=== PATIENT | female | born 1950 | race Hispanic/Latino ===

== ENCOUNTER 2024-06-23 04:29 | Inpatient (IN) | payer OTHER ==
[2024-06-23] MEDS ORDERED: HYDROCODONE/APAP 5/325 MG TAB ONE (04:45)
[2024-06-23] MEDS ORDERED: ONDANSETRON 4 MG/2 ML VIAL ONE (05:04)
[2024-06-23] MEDS ORDERED: MORPHINE 4 MG/ML SYR ONE ×2 (05:05→09:14)
[2024-06-23] MEDS ORDERED: MORPHINE 2 MG/ML SYR ONE (05:06)
[2024-06-23] MEDS ORDERED: DIAZEPAM 10 MG/2 ML INJ SYRINGE ONE (05:22)
[2024-06-23] MEDS ORDERED: NA CHLORIDE 0.9% 1,000 ML ONE (05:24)
[2024-06-23 06:18] LABS: Sqamous Epithelial None Seen /HPF (None Seen); Urine Bacteria None Seen /HPF (<20); Urine Bilirubin NEGATIVE (Negative); Urine Blood Negative (Negative); Urine Clarity Clear (Clear); Urine Color Light-Yellow (Yellow); Urine Culture Reflex Order NOT NEEDED; Urine Glucose 4+ (Over) (Negative); Urine Ketones 1+ (Negative); Urine Micro Reflex YN NO BILL MICROSCOPIC; Urine Nitrite NEGATIVE (Negative); Urine Protein TRACE (Negative); Urine RBC <5 /HPF (None Seen); Urine Urobilinogen Normal (Normal); Urine WBC <5 /HPF (<5); Urine pH 7.5 (5.0-7.0)
--- NOTE | 2024-06-23 06:18 | ER ---
Nurse's Notes [facility] Name: Kim Kumari Age: 73 yrs Sex: Female : 1950 Arrival Date: 06/23/2024 Time: 04:29 Bed 6 Private MD: Diagnosis: Left intertrochanteric hip fracture, Acute fall at home Presentation: 06/23 04:37 Chief complaint: EMS states: Pt tripped over her dog and fell on her left hip. Pt is kd3 holding her knees up for comfort and did not allow EMS to assess for shortening or deformity. PT received 50 mcg of fentanyl for pain and 4 of Zofran for nausea. 20 G in the left wrist. VSS. Coronavirus screen: Vaccine status: Patient reports being unvaccinated. Ebola Screen: No symptoms or risks identified at this time. Initial Sepsis Screen: Does the patient meet any 2 criteria? No. Patient's initial sepsis screen is negative. Does the patient have a suspected source of infection? No. Patient's initial sepsis screen is negative. Risk Assessment: Do you want to hurt yourself or someone else? Patient reports no desire to harm self or others. Onset of symptoms was June 23, 2024. 04:37 Method Of Arrival: EMS: [facility] kd3 04:37 Acuity: BRANDT 3 kd3 Triage Assessment: 04:40 General: Appears uncomfortable, Behavior is calm, cooperative. Pain: Complains of pain kd3 in left hip. Neuro: Level of Consciousness is awake, alert, obeys commands, Oriented to person, place, time, situation. Cardiovascular: Patient's skin is warm and dry. Respiratory: Airway is patent Trachea midline Respiratory effort is even, unlabored, Respiratory pattern is regular, symmetrical. Historical: - Allergies: 04:40 PENICILLINS; kd3 - Immunization history:: Adult Immunizations up to date. - Infectious Disease History:: Denies. - Social history:: Smoking status: Patient denies any tobacco usage or history of. - Family history:: not pertinent. Screenin:41 [facility] ED Fall Risk Assessment (Adult) History of falling in the last 3 months, kd3 including since admission Yes- single mechanical fall (1 pt) Confusion or Disorientation No (0 pts) Intoxicated or Sedated No (0 pts) Impaired Gait No (0 pts) Mobility Assist Device Used No (0 pt) Altered Elimination No (0 pt) Score/Fall Risk Level 0 - 2 = Low Risk Oriented to surroundings. Abuse screen: Denies threats or abuse. Denies injuries from another. Nutritional screening: No deficits noted. Tuberculosis screening: No symptoms or risk factors identified. Assessment: 04:40 General: See triage . kd3 06:41 Reassessment: Patient is alert, oriented x 3, equal unlabored respirations, skin kd3 warm/dry/pink. Patient states feeling better. Patient states symptoms have improved. Pain: Complains of pain in left hip. Neuro: Level of Consciousness is awake, alert, obeys commands, Oriented to person, place, time, situation. Cardiovascular: Patient's skin is warm and dry. Respiratory: Airway is patent Trachea midline Respiratory effort is even, unlabored, Respiratory pattern is regular, symmetrical. Vital Signs: 04:37 BP 166 / 59; Pulse 73; Resp 16; Temp 97.9(O); Pulse Ox 95% on R/A; Weight 67 kg; kd3 05:55 BP 157 / 79; Pulse 83; Resp 19; Pulse Ox 96% on R/A; kd3 06:40 BP 161 / 55; Pulse 72; Resp 16; Pulse Ox 94% ; kd3 07:46 BP 140 / 53; Pulse 70; Resp 18; Pulse Ox 96% on R/A; ph 09:30 BP 157 / 68; Pulse 87; Resp 18; Pulse Ox 98% on R/A; ph 11:09 BP 157 / 85; Pulse 96; Resp 18; Temp 97.5; Pulse Ox 97% ; ph Sanders Coma Score: 05:22 Eye Response: spontaneous(4). Motor Response: obeys commands(6). Verbal Response: sp4 oriented(5). Total: 15. ED Course: 04:30 Patient arrived in ED. ty 04:37 Ansley Zaldivar RN is Primary Nurse. kd3 04:38 Harmeet Olguin MD is Attending Physician. sp4 04:40 Triage completed. kd3 04:40 Arm band placed on right wrist. kd3 04:41 Patient has correct armband on for positive identification. Provided Education on: Hip kd3 injury . 04:41 Maintain EMS IV. Dressing intact. Good blood return noted. Site clean \T\ dry. Gauge \T\ kd 3 site: 20 gauge in the left forearm . 05:09 XRAY Hip LEFT 2 view In Process Unspecified. EDMS 05:34 XRAY Chest (1 view) In Process Unspecified. EDMS 05:34 XRAY Pelvis In Process Unspecified. EDMS 05:39 EKG done, by ED staff, reviewed by Harmeet Olguin MD. al5 05:55 No provider procedures requiring assistance completed. Doll cath inserted, using kd3 sterile technique, 18 Fr., by me, balloon inflated, urine specimen collected. 06:00 Urinalysis W/Microscopic Sent. kd3 06:01 Urine collected: Doll catheter specimen, clear. kd3 06:15 Missed attempt(s): 20 gauge Bleeding controlled, band aid applied, catheter tip intact. ty 06:16 Abbe Munguia is Hospitalizing Provider. sp4 06:20 Missed attempt(s): 22 gauge Bleeding controlled, band aid applied, catheter tip intact. ty 06:24 Missed attempt(s): 22 gauge Bleeding controlled, band aid applied, catheter tip intact. ty 06:25 Missed attempt(s): 22 gauge Bleeding controlled, band aid applied, catheter tip intact. ty 06:30 Initial lab(s) drawn, by ED staff, sent to lab. ty 09:25 Angio Aorta For Dissection In Process Unspecified. EDMS Administered Medications: 04:47 Drug: HYDROcodone-acetaminophen PO 5 mg-325 mg 2 tabs PO once Route: PO; kd3 06:42 Follow up: Response: No adverse reaction; Pain is unchanged, physician notified kd3 05:10 Drug: morphine IVP or IV 6 mg IVP once over 4 mins Route: IVP; Infused Over: 4 mins; kd3 Site: left forearm; 06:41 Follow up: Response: Pain is decreased kd3 05:10 Drug: Ondansetron IVP 4 mg IVP once; over 2 minutes Route: IVP; Site: left forearm; kd3 06:41 Follow up: Response: No adverse reaction kd3 05:54 Drug: Diazepam IVP 5 mg IVP once Route: IVP; Site: left wrist; kd3 06:41 Follow up: Response: No adverse reaction; Pain is decreased kd3 06:35 Drug: NS 0.9% IV 1000 ml IV at 125 ml/hr continuous Route: IV; Rate: 125 ml/hr; Site: kd3 left forearm; 08:09 Follow up: Response: No adverse reaction; IV Status: Infusion continued upon admission ph 09:15 Drug: morphine IVP or IV 4 mg IVP once over 4 mins Route: IVP; Infused Over: 4 mins; ph Site: left wrist; Medication: 05:55 VIS not applicable for this client. kd3 Outcome: 06:17 Decision to Hospitalize by Provider. sp4 11:50 Patient left the ED. kj2 Signatures: Dispatcher [employer] EDMS Rhina Rose RN RN ph Ansley Zaldivar RN RN kd3 Harmeet Olguin MD MD sp4 Justin Davidson Amanda, RN RN al5 Loni Tejada RN RN kj2 Corrections: (The following items were deleted from the chart) 06:35 06:34 NS 0.9% IV 1000 ml IV at 125 ml/hr in right wrist kd3 kd3 09:29 09:28 morphine IVP or IV 4 mg IVP in left wrist over 4 mins ph ph
--- NOTE | 2024-06-23 06:18 | EDPHYS ---
Physician Documentation [facility] Name: Kim Kumari Age: 73 yrs Sex: Female : 1950 Arrival Date: 06/23/2024 Time: 04:29 Bed 6 Private MD: ED Physician Harmeet Olguin HPI: 06/23 04:56 This 73 yrs old Female presents to ER via EMS with complaints of Fall Injury, sp4 Hip Pain. 05:22 Very pleasant 73-year-old female presents after she fell at home over her dog sp4 developing moderate to severe left hip pain.. Historical: - Allergies: 04:40 PENICILLINS; kd3 - Immunization history:: Adult Immunizations up to date. - Infectious Disease History:: Denies. - Social history:: Smoking status: Patient denies any tobacco usage or history of. - Family history:: not pertinent. ROS: 05:22 Constitutional: Negative for fever, chills, and weight loss, positive Left hip pain sp4 05:22 All other systems are negative, Exam: 05:22 Constitutional: This is a well developed, well nourished patient who is awake, alert, sp4 in moderate distress secondary to left hip pain 05:22 Head/Face: Normocephalic, atraumatic. Eyes: Pupils equal round and reactive to light, sp4 extra-ocular motions intact. Lids and lashes normal. Conjunctiva and sclera are not injected. Cornea within normal limits. Periorbital areas with no swelling, redness, or edema. ENT: Nares patent. No nasal discharge, no septal abnormalities noted. Tympanic membranes are normal and external auditory canals are clear. Oropharynx with no redness, swelling, or masses, exudates, or evidence of obstruction, uvula midline. Mucous membranes moist. Neck: Trachea midline, no thyromegaly or masses palpated, and no cervical lymphadenopathy. Supple, full range of motion without nuchal rigidity, or vertebral point tenderness. Chest/axilla: Normal chest wall appearance and motion. Nontender with no deformity. No lesions are appreciated. Cardiovascular: Regular rate and rhythm with a normal S1 and S2. No gallops, murmurs, or rubs. Normal PMI, no JVD. No pulse deficits. Respiratory: Lungs have equal breath sounds bilaterally, clear to auscultation and percussion. No rales, rhonchi or wheezes noted. No increased work of breathing, no retractions or nasal flaring. Abdomen/GI: Soft, with normal bowel sounds. No distension or tympany. No guarding or rebound. No evidence of tenderness throughout. Back: No spinal tenderness. No costovertebral tenderness. Skin: Warm, dry with normal turgor. Normal color with no rashes, no lesions, and no evidence of cellulitis. MS/ Extremity: Pulses equal, no cyanosis. Neurovascular intact. Postive left hip severe tenderness, decreased ROM, intact peripheral pulses Neuro: Awake and alert, GCS 15, oriented to person, place, time, and situation. Cranial nerves II-XII grossly intact. Motor strength 5/5 in all extremities. Sensory grossly intact. 05:46 ECG was reviewed by the Attending Physician. KG at 0 537 normal sinus rhythm rate 70 sp4 left ventricular hypertrophy, prolonged QT Vital Signs: 04:37 BP 166 / 59; Pulse 73; Resp 16; Temp 97.9(O); Pulse Ox 95% on R/A; Weight 67 kg; kd3 05:55 BP 157 / 79; Pulse 83; Resp 19; Pulse Ox 96% on R/A; kd3 06:40 BP 161 / 55; Pulse 72; Resp 16; Pulse Ox 94% ; kd3 07:46 BP 140 / 53; Pulse 70; Resp 18; Pulse Ox 96% on R/A; ph 09:30 BP 157 / 68; Pulse 87; Resp 18; Pulse Ox 98% on R/A; ph 11:09 BP 157 / 85; Pulse 96; Resp 18; Temp 97.5; Pulse Ox 97% ; ph Wendy Coma Score: 05:22 Eye Response: spontaneous(4). Motor Response: obeys commands(6). Verbal Response: sp4 oriented(5). Total: 15. MDM: 04:56 Patient medically screened. sp4 05:46 ED course: COMPARISON: No relevant prior studies available. FINDINGS: Bones/joints: sp4 Comminuted left intertrochanteric femur fracture. No hip dislocation. Degenerative changes in the lower lumbar spine. Soft tissues: Unremarkable. IMPRESSION: Comminuted left intertrochanteric femur fracture. Electronically signed by: Liliam Andre MD 06/23/2024 05:22 AM. 06:15 Differential diagnosis: closed head injury, contusion, fracture, laceration. Data 4 reviewed: vital signs, nurses notes, EMS record, lab test result(s), EKG, radiologic studies, plain films. Consideration of Admission/Observation Escalation of care including admission/observation considered. ED course: EXAM: XR Pelvis, 1 or 2 Views CLINICAL HISTORY: The patient is 73 years old and is Female; PAIN TECHNIQUE: Single frontal view of the pelvis. COMPARISON: No relevant prior studies available. FINDINGS: Bones/joints: Comminuted displaced left intertrochanteric femur fracture. No dislocation. Soft tissues: Unremarkable. IMPRESSION: Comminuted displaced left intertrochanteric femur fracture. ED course: Patient was discussed with orthopedist Dr. Jenkins who agreed to see patient on consult. 06:17 ED course: EXAM: XR Chest, 1 View CLINICAL HISTORY: The patient is 73 years old and is sp4 Female; pre operative TECHNIQUE: Single view of the chest. COMPARISON: No relevant prior studies available. FINDINGS: Lungs: No pulmonary vascular congestion or consolidation. Pleural space: Unremarkable. No pneumothorax. Heart: Unremarkable. No cardiomegaly. Mediastinum: Unremarkable. Bones/joints: No acute fracture visualized. Vertebral osteophytes. Upper abdomen: No free air in the visualized upper abdomen. IMPRESSION: No acute cardiopulmonary process identified. . 06/23 05:02 Order name: Basic Metabolic Panel [facility] 06/23 05:02 Order name: CBC with Diff [facility] 06/23 05:02 Order name: LFT's [facility] 06/23 05:02 Order name: PT-INR [facility] 06/23 05:03 Order name: Urinalysis W/Microscopic; Complete Time: 06:19 [facility] 06/23 06:19 Order name: Type And Screen [facility] 06/23 07:33 Order name: CBC Smear Scan [facility] 06/23 10:58 Order name: Basic Metabolic Panel [facility] 06/23 10:58 Order name: Basic Metabolic Panel [facility] 06/23 10:58 Order name: Basic Metabolic Panel [facility] 06/23 10:58 Order name: Basic Metabolic Panel [facility] 06/23 10:58 Order name: Basic Metabolic Panel [facility] 06/23 10:58 Order name: Basic Metabolic Panel [facility] 06/23 10:58 Order name: CBC with Automated Diff EDMS 06/23 10:58 Order name: CBC with Automated Diff EDMS 06/23 10:58 Order name: CBC with Automated Diff EDMS 06/23 10:58 Order name: CBC with Automated Diff EDMS 06/23 10:58 Order name: CBC with Automated Diff EDMS 06/23 10:58 Order name: CBC with Automated Diff EDMS 06/23 10:58 Order name: Magnesium EDMS 06/23 10:58 Order name: Magnesium EDMS 06/23 10:58 Order name: Magnesium EDMS 06/23 10:58 Order name: Magnesium EDMS 06/23 10:58 Order name: Magnesium EDMS 06/23 10:58 Order name: Magnesium EDMS 06/23 10:58 Order name: Phosphorus EDMS 06/23 10:58 Order name: Phosphorus EDMS 06/23 10:58 Order name: Phosphorus EDMS 06/23 10:58 Order name: Phosphorus EDMS 06/23 10:58 Order name: Phosphorus EDMS 06/23 10:58 Order name: Phosphorus EDMS 06/23 04:42 Order name: XRAY Hip LEFT 2 view kd3 06/23 05:02 Order name: XRAY Chest (1 view) sp4 06/23 05:21 Order name: XRAY Pelvis kd3 06/23 09:05 Order name: Angio Aorta For Dissection EDMS 06/23 05:02 Order name: EKG; Complete Time: 05:03 sp4 06/23 10:58 Order name: CONS Physician Consult EDMS 06/23 05:02 Order name: Cardiac monitoring; Complete Time: 05:55 sp4 06/23 05:02 Order name: EKG - Nurse/Tech; Complete Time: 05:39 sp4 06/23 05:02 Order name: IV Saline Lock; Complete Time: 05:10 sp4 06/23 05:02 Order name: Labs collected and sent; Complete Time: 06:35 sp4 06/23 05:02 Order name: O2 Per Protocol; Complete Time: 06:35 sp4 06/23 05:02 Order name: O2 Sat Monitoring; Complete Time: 06:35 sp4 06/23 05:03 Order name: Doll; Complete Time: 05:54 sp4 06/23 05:03 Order name: NPO; Complete Time: 05:54 sp4 EC:46 Rate is 70 beats/min. Rhythm is regular, Normal Sinus Rhythm. QRS [place] is Normal. [place] sp4 interval is normal. QRS interval is normal. QT interval is prolonged. No Q waves. T waves are Normal. No ST changes noted. Clinical impression: No evidence of ischemia. Interpreted by me. Reviewed by me. Administered Medications: 04:47 Drug: HYDROcodone-acetaminophen PO 5 mg-325 mg 2 tabs PO once Route: PO; kd3 06:42 Follow up: Response: No adverse reaction; Pain is unchanged, physician notified kd3 05:10 Drug: morphine IVP or IV 6 mg IVP once over 4 mins Route: IVP; Infused Over: 4 mins; kd3 Site: left forearm; 06:41 Follow up: Response: Pain is decreased kd3 05:10 Drug: Ondansetron IVP 4 mg IVP once; over 2 minutes Route: IVP; Site: left forearm; kd3 06:41 Follow up: Response: No adverse reaction kd3 05:54 Drug: Diazepam IVP 5 mg IVP once Route: IVP; Site: left wrist; kd3 06:41 Follow up: Response: No adverse reaction; Pain is decreased kd3 06:35 Drug: NS 0.9% IV 1000 ml IV at 125 ml/hr continuous Route: IV; Rate: 125 ml/hr; Site: kd3 left forearm; 08:09 Follow up: Response: No adverse reaction; IV Status: Infusion continued upon admission ph 09:15 Drug: morphine IVP or IV 4 mg IVP once over 4 mins Route: IVP; Infused Over: 4 mins; ph Site: left wrist; Disposition Summary: 06/23/24 06:17 Hospitalization Ordered Notes: Hospitalization Status: Inpatient Admission sp4 Provider: Abbe Munguia sp4 Location: Telemetry/[facility] (Inpatient) sp4 Condition: Stable sp4 Problem: new sp4 Symptoms: have improved sp4 Bed/Room Type: Standard sp4 Room Assignment: 221(06/23/24 11:09) em1 Diagnosis - Left intertrochanteric hip fracture, Acute fall at home sp4 Forms: - Medication Reconciliation Form sp4 - SBAR form sp4 - Leadership Thank You Letter sp4 Signatures: Dispatcher [employer] Jaren Montano em1 Rhina Rose RN RN Ansley Zaldivar RN RN kd3 Melecio Olivas MD MD rt Harmeet Olguin MD MD sp4 Corrections: (The following items were deleted from the chart) 05:21 05:21 Pelvis+[id number].[email or web address] ordered. EDMS EDMS 05:34 05:22 Constitutional: Negative for fever, chills, and weight loss, positive Right hip sp4 pain sp4 09:03 09:03 Dissection W/Wo Con ordered. EDMS EDMS 11:09 06:17 sp4 em1
--- NOTE | 2024-06-23 06:34 | P.HP ---
Certification for Inpatient Patient admitted to: Inpatient With expected LOS: >2 Midnights Patient will require the following post-hospital care: None Practitioner: I am a practitioner with admitting privileges, knowledge of patient current condition, hospital course, and medical plan of care. Services: Services provided to patient in accordance with Admission requirements found in Title 42 Section 412.3 of the Code of Federal Regulations Patient History Date of Service: 06/23/24 Reason for admission: Left intertrochanteric femur fracture History of Present Illness: Kim Kumari is a 73 year old female with Pmhx of diabetes mellitusNIDDM, hypertension, hyperlipidemia, chronic pain with lower back problems and arthritis, frequent falls, pheochromocytoma, breast cancer who presents to the ED with chief complaint of left hip pain. She reports tripping over her dog at 3am landing on her left hip. Of note, she states she had fallen on her left side and hit her head at her last ED visit. She does not remember falling but woke up on the floor. Her at the bedside believed she fell out of the desk chair. Initial vitals BP 166 / 59; Pulse 73; Resp 16; Temp 97.9(O); Pulse Ox 95% on R/A Laboratory evaluation WBC 14.1, neutrophils 90.2, serum glucose 344 Pelvis xray reports " comminuted displaced left intertrochanteric femur fract ure" Chest x-ray reports "no acute cardiopulmonary process identified" Left hip with pelvis x-ray reports "comminuted left intertrochanteric femur fracture" Kim will be admitted to hospitalist service for further treatment of left intertrochanteric femur fracture. Allergies Penicillins Allergy (Verified 06/23/24 08:11) Hives/Rash Home Medications: Amlodipine Besylate 10 mg PO DAILY 06/23/24 Aspirin 81 mg PO DAILY 06/23/24 Azelastine HCl [Astepro] 137 mcg NS BID 06/23/24 Ezetimibe 10 mg PO DAILY 06/23/24 Fluticasone [Flonase 50MCG Nasal [place]*] 1 spray DAILY 06/23/24 Hydralazine HCl 100 mg PO BID 06/23/24 Mv/Fe/FA/Om3/FSH/Lycop/Lut/Bautista [Multia Daily Multivitamin] 1 cap PO DAILY 06/23/24 Pravastatin Sodium 10 mg PO BEDTIME 06/23/24 Ubidecarenone [Co Q-10] 10 mg PO DAILY 06/23/24 glipiZIDE [Glipizide] 2.5 mg PO BID 06/23/24 - Past Medical/Surgical History -: Pheochromocytoma -: Breast cancer -: Status post 3-1/2 months of radiation -: Hyperlipidemia -: Hypertension -: Diabetes mellitusNIDDM -: Arthritis -: Lower back pain -: Frequent falls - Social History Smoking Status: Never smoker Alcohol use: No CD- Drugs: No Review of Systems Gastrointestinal: Nausea, Vomiting Musculoskeletal: Other (Left hip pain) Physical Examination - Physical Exam General: Alert, In no apparent distress, Oriented x3, Other (Uncomfortable) HEENT: Atraumatic, Normocephalic, PERRLA Neck: Supple, 2+ carotid pulse no bruit Respiratory: Clear to auscultation bilaterally, Normal air movement Cardiovascular: Normal pulses, Regular rate/rhythm Capillary refill: <2 Seconds Gastrointestinal: Normal bowel sounds, Soft and benign Musculoskeletal: No swelling, Other (Left hip tenderness) Integumentary: No breakdown Neurological: Normal speech, Normal tone Assessment and Plan - Plan Assessment and Plan Left intertrochanteric femur fracture Trauma/Fall Leukocytosis like d/t inflammation -Pelvis xray reports " comminuted displaced left intertrochanteric femur fracture" -Chest x-ray reports "no acute cardiopulmonary process identified" -Left hip with pelvis x-ray reports "comminuted left intertrochanteric femur fracture" -CT dissection reports "Comminuted left femoral intertrochanteric fracture with surrounding swelling within the gluteus muscles." -WBC 14.10 -Consult orthopedic surgery -Pain control, scopalamine patch -N.p.o. 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 Moderate burden of calcified and noncalcified atherosclerotic plaque with luminal irregularity along the distal descending th oracic aorta and throughout the abdominal aorta. Mild tortuosity of the infrarenal abdominal aorta without significant aneurysmal dilation. Reconstruction images show no other significant findings." -no significant aneurysmal dilation History of breast cancer s/p radiation -follow up outpatient DVT PPx SCDs, orthopedics will order Lovenox when appropriate Full code LOS 2 days Discharge Plan: Home Plan to discharge in: 48 Hours - Advance Directives Does patient have a Living Will: No Does patient have a Durable POA for Healthcare: No
[2024-06-23 06:52] LABS: Absolute Lymphocytes (CBC) 0.9 K/uL (0.7-4.9); Absolute Monocytes 0.4 K/uL (0.1-1.3); Absolute Neutrophil 12.7 K/uL (1.8-8.0); Basophils % 0.3 % (0-1.3); Eosinophils % 0.2 % (0-4.4); Hematocrit 39.6 % (36.0-45.0); Hemoglobin 13.1 g/dL (12.0-15.0); Lymphocytes % 6.6 % (15.3-44.8); MCH 30.2 pg (27.0-35.0); MCHC 33.2 g/dL (32.0-36.0); MCV 91.1 fL (80-100); MPV 10.5 fL (7.6-11.3); Monocytes % 2.7 % (3.3-12.3); Neutrophils % 90.2 % (41.7-73.7); Platelets 156 thou/uL (152-406); RBC Red Blood Cell Count 4.34 M/uL (3.86-4.86); Red Cell Distribution Width 13.3 % (12.1-15.2)
[2024-06-23 07:07] LABS: Anion Gap 10.5 mEq/L (5.0-15.0); Bilirubin Direct 0.3 mg/dL (0-0.2); Bilirubin Indirect, Calculated 0.4 mg/dL (0.2-0.8); Bilirubin Total 0.7 mg/dL (0.2-1.0); Globulin 4.2 g/dL (2.3-3.5); Potassium 3.5 mEq/L (3.5-5.1); Protein, Total 8.2 g/dL (6.4-8.2)
[2024-06-23 07:14] LABS: PT Prothrombin Time 10.9 SECONDS (9.4-12.5); Protime INR 0.97
[2024-06-23 09:22] LABS: Blood Morphology Comment NOT SEEN (NOT SEEN); Platelet Estimate ADEQ; White Blood Cell Scan OK (OK)
--- NOTE | 2024-06-23 10:20 | RAD REPORT ---
EXAM DESCRIPTION: CT - Angio Aorta For Dissection - 06/23/2024 9:23 am CLINICAL HISTORY: history of abdominal aortic aneurysm. Fall COMPARISON: No comparisons TECHNIQUE: Thin axial CT images of the chest, abdomen, and pelvis were obtained during administratio n of 100mL Isovue 370 IV contrast. Sagittal and coronal reconstructions as well as maximal intensity projection reconstruction were generated and reviewed per an aortic angiography protocol. All CT scans are performed using dose optimization technique as appropriate and may include automated exposure control or mA/KV adjustment according to patient size. FINDINGS: Aorta is normal in diameter with no dissection or other acute aortic findings. Moderate bu rden of calcified and noncalcified atherosclerotic plaque with luminal irregularity along the distal descending thoracic aorta and throughout the abdominal aorta. Mild tortuosity of the infrarenal abdom inal aorta without significant aneurysmal dilation. Reconstruction images show no other significant f indings. Pulmonary arteries are normal as well. No mass or infiltrate in the lung parenchyma. No pleural thickening, pleural effusion or pneumothorax . No abnormal mediastinal or hilar mass or lymphadenopathy seen. No chest wall mass or abnormal axillar y lymphadenopathy. Celiac, SMA and renal arteries show no suspicious findings. Status post cholecystectomy. Small right adrenal nodule measuring 1.3 cm, appears slightly increased in size since the prior CTs. Solid abdomi nal viscera and bowel show no significant findings. No mass or abnormal lymphadenopathy. Bladder is d ecompressed with Doll catheter in place. Comminuted left femoral intertrochanteric fracture with surrounding swelling within the gluteus muscl es. IMPRESSION: No acute abnormalities on CT angiogram of the aorta. Moderate burden of atherosclerotic plaque as above. Mild interval increase in size of a right adrenal nodule now measuring 1.3 cm. This is not well evalu ated on this single-phase exam. Given the history, oncologic follow-up is recommended. Left femoral intertrochanteric fracture.
--- NOTE | 2024-06-23 11:46 | RAD REPORT ---
EXAM DESCRIPTION: RAD - Hip Left 2 View - 06/23/2024 5:07 am CLINICAL HISTORY: The patient is 73 years old and is Female; PAIN TECHNIQUE: Two views of the left hip with pelvis when performed. COMPARISON: No relevant prior studies available. FINDINGS: Bones/joints: Comminuted left intertrochanteric femur fracture. No hip dislocation. Degenerative changes in the lower lumbar spine. Soft tissues: Unremarkable. IMPRESSION: Comminuted left intertrochanteric femur fracture. Electronically signed by: Liliam Andre MD 06/23/2024 05:22 AM CDT RP ND Due to temporary technical issues with the PACS/Fluency reporting system, reports are being signed by the in house radiologist without review as a courtesy to ensure prompt reporting. The interpreting r adiologist is fully responsible for the content of the report.
--- NOTE | 2024-06-23 11:47 | RAD REPORT ---
EXAM DESCRIPTION: RAD - Chest Single View - 06/23/2024 5:32 am CLINICAL HISTORY: The patient is 73 years old and is Female; pre operative TECHNIQUE: Single view of the chest. COMPARISON: No relevant prior studies available. FINDINGS: Lungs: No pulmonary vascular congestion or consolidation. Pleural space: Unremarkable. No pneumothorax. Heart: Unremarkable. No cardiomegaly. Mediastinum: Unremarkable. Bones/joints: No acute fracture visualized. Vertebral osteophytes. Upper abdomen: No free air in the visualized upper abdomen. IMPRESSION: No acute cardiopulmonary process identified. Electronically signed by: Liliam Andre MD 06/23/2024 05:54 AM CDT RP ND Due to temporary technical issues with the PACS/Fluency reporting system, reports are being signed by the in house radiologist without review as a courtesy to ensure prompt reporting. The interpreting r adiologist is fully responsible for the content of the report.
--- NOTE | 2024-06-23 11:50 | RAD REPORT ---
EXAM DESCRIPTION: RAD - Pelvis - 06/23/2024 5:32 am CLINICAL HISTORY: The patient is 73 years old and is Female; PAIN TECHNIQUE: Single frontal view of the pelvis. COMPARISON: No relevant prior studies available. FINDINGS: Bones/joints: Comminuted displaced left intertrochanteric femur fracture. No dislocation. Soft tissues: Unremarkable. IMPRESSION: Comminuted displaced left intertrochanteric femur fracture. Electronically signed by: Liliam Andre MD 06/23/2024 05:54 AM CDT RP ND Due to temporary technical issues with the PACS/Fluency reporting system, reports are being signed by the in house radiologist without review as a courtesy to ensure prompt reporting. The interpreting r adiologist is fully responsible for the content of the report.
[2024-06-23] MEDS: NA CHLORIDE 0.9% 1,000 ML IV SCH (13:09)
[2024-06-23] MEDS: MORPHINE 2 MG/ML SYR IV PRN (13:09)
--- NOTE | 2024-06-23 13:14 | EKG ---
Test Date: 2024-06-23 Test Time: 05:37:19 Facilities Painter: MAINE MEASUREMENT RESULTS: Intervals: Rate: 70 AL: 158 QRSD: 90 QT: 450 QTc: 486 [place]: P: 54 AL: 158 QRS: -26 T: 91 INTERPRETIVE STATEMENTS: Normal sinus rhythm Voltage criteria for left ventricular hypertrophy T wave abnormality, consider lateral ischemia Prolonged QT Abnormal ECG No previous ECG available for comparison Electronically Signed On 06-23-24 13:14:11 CDT by Jamie Longoria
[2024-06-23] MEDS: INSULIN REGULAR (HUMAN) 100 UNIT/ML SQ SCH (13:27)
[2024-06-23] MEDS: D5W 1,000 ML IV SCH ×2 (13:28→17:32)
[2024-06-23] MEDS: SCOPOLAMINE HYDROBROMIDE PATCH TD ONE (14:08)
[2024-06-23 20:14] VITALS: BMI 23.8
[2024-06-23] MEDS ORDERED: HOME MED 1 EA UNK (Hydralazine Hcl [Hydralazine Hcl] 100 MG Tablet) PO SCH (21:00)
[2024-06-23] MEDS: HYDRALAZINE HCL 25 MG TABLET PO SCH (21:05)
[2024-06-23] MEDS: ATORVASTATIN 10 MG TAB PO SCH (21:05)
[2024-06-24 04:56] LABS: Absolute Basophils 0.1 K/uL (0-0.5); Absolute Eosinophils 0.1 K/uL (0-0.5); Absolute Monocytes 0.8 K/uL (0.1-1.3); Absolute Neutrophil 10.3 K/uL (1.8-8.0); Basophils % 0.6 % (0-1.3); Eosinophils % 0.4 % (0-4.4); Hematocrit 36.9 % (36.0-45.0); Hemoglobin 12.3 g/dL (12.0-15.0); Lymphocytes % 14.9 % (15.3-44.8); MCH 30.4 pg (27.0-35.0); MCHC 33.2 g/dL (32.0-36.0); MCV 91.4 fL (80-100); MPV 11.1 fL (7.6-11.3); Neutrophils % 78.1 % (41.7-73.7); Platelets 160 thou/uL (152-406); RBC Red Blood Cell Count 4.04 M/uL (3.86-4.86); Red Cell Distribution Width 13.6 % (12.1-15.2)
[2024-06-24 05:07] LABS: Anion Gap 9.3 mEq/L (5.0-15.0); Magnesium 2.7; Phosphorus 3.6 mg/dL (2.5-4.9); Potassium 4.3 mEq/L (3.5-5.1)
[2024-06-24] MEDS: HYDRALAZINE HCL 20 MG/ML VIAL IV PRN (05:14)
[2024-06-24] MEDS: ASPIRIN 81 MG CHEWABLE TABLET PO SCH (09:00)
[2024-06-24] MEDS: UBIDECARENONE 10 MG PO SCH (09:00)
[2024-06-24] MEDS ORDERED: UBIDECARENONE 10 MG PO SCH (09:00)
[2024-06-24] MEDS: AMLODIPINE 10 MG TAB PO SCH (09:31)
[2024-06-24] MEDS: EZETIMIBE 10 MG TAB PO SCH (09:32)
[2024-06-24] MEDS: NA CHLORIDE 0.9% 1,000 ML ONE (10:32)
[2024-06-24] MEDS: LIDOCAINE 2% MPF 5 ML VIAL ONE (10:51)
[2024-06-24] MEDS: propofoL 200 MG/20 ML VIAL IV ONE (10:51)
[2024-06-24] MEDS: LIDOCAINE 1% MPF 5 ML VIAL ONE (10:51)
[2024-06-24] MEDS: dexAMETHasone 10 MG/ML VIAL ONE (10:51)
[2024-06-24] MEDS: ROPLVACAINE HCL 20 ML ONE (10:52)
[2024-06-24] MEDS: EPINEPHRINE 1 MG/ML VIAL ONE (10:52)
[2024-06-24] MEDS: TRANEXAMIC ACID 1,000 MG/10 ML VIAL IV ONE (11:05)
[2024-06-24] MEDS: CEFAZOLIN SODIUM 1 GM/VIAL ONE (11:16)
[2024-06-24] MEDS ORDERED: ONDANSETRON 4 MG/2 ML VIAL ONE (11:23)
[2024-06-24] MEDS: HYDROMORPHONE HCL 2 MG/ML inj ONE (12:56)
--- NOTE | 2024-06-24 13:41 | RAD REPORT ---
EXAM DESCRIPTION: XA - Hip in OR Left 2 View - 06/24/2024 1:32 pm CLINICAL HISTORY: LT HIP RODDING COMPARISON: No comparisons FINDINGS: Fluoroscopy time 1.8 minutes.
--- NOTE | 2024-06-24 13:56 | RAD REPORT ---
EXAM DESCRIPTION: RAD - Pelvis - 06/24/2024 1:18 pm CLINICAL HISTORY: post-op Left hip pain and swelling COMPARISON: Pelvis dated 06/23/2024 FINDINGS: Intramedullary derrick has been placed within the proximal left femur with reduction of the pr eviously noted fracture. No unexpected immediate postoperative finding. Lateral skin to are note d.
[2024-06-24] MEDS: HYDROCODONE/APAP 5/325 MG TAB PO PRN (14:31)
--- NOTE | 2024-06-24 16:27 | CON ---
Preoperative Diagnosis: Left intertrochanteric hip fracture. Reason For Consultation: Patient sustained a fall at home. She has had history of some malignancies with pheochromocytoma and a mass on her left adrenal gland. However, she is medically stable and is a household ambulator. She will be assessed and we will juarez e her to the OR for a left intramedullary hip rodding. This should be performed without difficulty. GILMA Voice ID: [id number] Report ID: [id number]
[2024-06-24] MEDS: ENSURE SURGERY 237 ML CAN PO SCH (17:00)
--- NOTE | 2024-06-24 17:20 | P.PN ---
Date of Service: 06/24/24 Subjective Awake and c/o pain Surgery this morning ROS 10 point ROS as noted above, otherwise negative Physical Exam General: Alert and Oriented x3, NAD HEENT: Atraumatic, Normocephalic, PERRLA Neck: Supple, 2+ carotid pulse no bruit Respiratory: Clear to auscultation bilaterally, Normal air movement Cardiovascular: Normal pulses, RRR, S1 S2 present, no murmur noted Capillary refill: <2 Seconds Gastrointestinal: Normal bowel sounds, Soft and benign on palpation Musculoskeletal: No swelling, Other (Left hip tenderness), left hip incision dressing CDI Integumentary: No breakdown Neurological: Normal speech, Normal tone Vitals Reviewed Problem list Left intertrochanteric femur fracture Trauma/Fall Leukocytosis like d/t inflammation Prolonged QT Diabetes Mellitus- NIDDM History of HTN/HLD 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 Right adrenal nodule History of breast cancer s/p radiation Assessment and Plan Left intertrochanteric femur fracture Trauma/Fall Leukocytosis like d/t inflammation -Pelvis xray reports " comminuted displaced left intertrochanteric femur fracture" -Chest x-ray reports "no acute cardiopulmonary process identified" -Left hip with pelvis x-ray reports "comminuted left intertrochanteric femur fracture" -CT dissection reports "Comminuted left femoral intertrochanteric fracture with surrounding swelling within the gluteus muscles." -WBC 13.3 -Consult orthopedic surgery, ancef -Pain control, scopalamine patch -N.p.o. 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 Moderate burden of calcified and noncalcified atherosclerotic plaque with luminal irregularity along the distal descending thoracic aorta and throughout the abdominal aorta. Mild tortuosity of the infrarenal abdominal aorta without significant aneurysmal dilation. Reconstruction images show no other significant findings." -no significant aneurysmal dilation History of breast cancer s/p radiation -follow up outpatient DVT PPx Lovenox Full code LOS 2 days Discharge Plan: Home Plan to discharge in: 48 Hours
--- NOTE | 2024-06-24 20:03 | OP ---
Surgeon: Mani Jenkins MD Attorney Law Clerk: None. Preoperative Diagnosis: Left intertrochanteric hip fracture. Postoperative Diagnosis: Left intertrochanteric hip fracture. Procedure: Intramedullary rodding of left intertrochanteric hip fracture. Anesthesia: General. Disposition: To recovery room, stable. Operative Report In Detail: The patient was taken to the operative suite, placed in supine position, induced with anesthesia. Left hip was prepped and draped in the usual sterile fashion. Access thro ugh an incision at the tip of the greater trochanter followed by single stage reaming for passage of an 11 x 130 cm short nail. A 95 lag screw was placed in the subchondral bone and femoral head verifi ed on biplane radiography followed by a distal interlocking screw measuring 32 mm. Patient tolerated the procedure well. Through this point, a layered closure was then performed. Patient was reversed of anesthesia and should be in the recovery room shortly. GILMA Voice ID: [id number] Report ID: [id number]
[2024-06-24] MEDS ORDERED: HOME MED 1 EA UNK (Pravastatin Sodium [Pravastatin Sodium] 10 MG Tablet) PO SCH (21:00)
[2024-06-24] MEDS: CEFAZOLIN 1 GM in NA CHLORIDE 0.9% 50 ML IVPB SCH (21:03)
[2024-06-24] MEDS: NACHLORIDE 0.45% 1,000 ML IV SCH (22:29)
[2024-06-25] MEDS: ENOXAPARIN 30 MG/0.3 ML SQ SCH (05:30)
[2024-06-25 06:20] LABS: Absolute Basophils 0.1 K/uL (0-0.5); Absolute Lymphocytes (CBC) 1.3 K/uL (0.7-4.9); Absolute Monocytes 0.5 K/uL (0.1-1.3); Absolute Neutrophil 11.2 K/uL (1.8-8.0); Basophils % 0.5 % (0-1.3); Hematocrit 32.8 % (36.0-45.0); Hemoglobin 11.1 g/dL (12.0-15.0); Lymphocytes % 9.6 % (15.3-44.8); MCH 30.5 pg (27.0-35.0); MCHC 33.9 g/dL (32.0-36.0); MCV 90.1 fL (80-100); MPV 10.4 fL (7.6-11.3); Monocytes % 4.1 % (3.3-12.3); Neutrophils % 85.8 % (41.7-73.7); Platelets 148 thou/uL (152-406); RBC Red Blood Cell Count 3.63 M/uL (3.86-4.86); Red Cell Distribution Width 13.3 % (12.1-15.2)
[2024-06-25 06:39] LABS: Anion Gap 8.9 mEq/L (5.0-15.0); Magnesium 2.5 mg/dL (1.6-2.4); Phosphorus 3.4 mg/dL (2.5-4.9); Potassium 4.9 mEq/L (3.5-5.1)
[2024-06-25] MEDS: FLUTICASONE 50MCG NASAL SPRAY NAS SCH (08:21)
[2024-06-25] MEDS: NACHLORIDE 0.45% 1,000 ML IV SCH (09:16)
[2024-06-25] MEDS: HYDROMORPHONE HCL 2 MG/ML inj IV PRN (10:06)
--- NOTE | 2024-06-25 10:17 | P.PN ---
Date of Service: 06/25/24 Subjective good conversation today, family at the bedside She reports that she did hit her head with this most recent fall, head CT today Doll catheter present postoperative, discontinued today after working with therapy ROS 10 point ROS as noted above, otherwise negative Physical Exam General: AAO x3, NAD, conversing well HEENT: Atraumatic, Normocephalic, PERRLA Neck: Supple, 2+ carotid pulse no bruit Respiratory: Clear to auscultation bilaterally, Normal air movement, on RA Cardiovascular: Normal pulses, regualar rate and rhythm, S1 S2 present, no murmur noted Capillary refill: <2 Seconds Gastrointestinal: Normal bowel sounds, Soft on palpation, ND/NT Musculoskeletal: No swelling, Other (Left hip tenderness), left hip incision dressing CDI Integumentary: No breakdown Neurological: Normal speech, Normal tone Vitals Reviewed Problem list Left intertrochanteric femur fracture Trauma/Fall Leukocytosis like d/t inflammation Prolonged QT Diabetes Mellitus- NIDDM History of HTN/HLD 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 Moderate burden of calcified and noncalcified atherosclerotic plaque with luminal irregularity along the distal descending thoracic aorta and throughout the abdominal aorta. Mild tortuosity of the infrarenal abdominal aorta without significant aneurysmal dilation. Reconstruction images show no other significant findings." -no significant aneurysmal dilation History of breast cancer s/p radiation -follow up outpatient DVT PPx Lovenox Full code LOS 2 days Discharge Plan: Home Plan to discharge in: Likely Inpatient rehab
--- NOTE | 2024-06-25 12:36 | RAD REPORT ---
EXAM DESCRIPTION: CT - Head Brain Wo Cont - 06/25/2024 11:33 am CLINICAL HISTORY: fall OPTICAL LABORATORY TECHNICIAN COMPARISON: No comparisons TECHNIQUE: Noncontrast head CT images were obtained without IV contrast. Multiplanar reformats were generated and reviewed. All CT scans are performed using dose optimization technique as appropriate and may include automated exposure control or mA/KV adjustment according to patient size. FINDINGS: No intracranial hemorrhage, mass, or edema. Midline structures are unremarkable. Normal ventricular caliber for age. Small region of hypoattenuation in the left subinsular region, may represent a small remote infarct. Tate-white matter differentiation is otherwise preserved, without evidence of acute infarct. No abnor mal extra-axial fluid collections. Mastoid air cells and visualized portions of the paranasal sinuses are clear. No acute bony findings. IMPRESSION: No evidence of an acute intracranial process. Probable small remote left subinsular infa rct.
[2024-06-25] MEDS: INSULIN REGULAR (HUMAN) 100 UNIT/ML SQ SCH (15:58)
[2024-06-25] MEDS ORDERED: SCOPOLAMINE HYDROBROMIDE PATCH TD ONE (16:03)
[2024-06-26 05:47] LABS: Absolute Eosinophils 0.1 K/uL (0-0.5); Absolute Lymphocytes (CBC) 1.6 K/uL (0.7-4.9); Absolute Monocytes 0.8 K/uL (0.1-1.3); Absolute Neutrophil 9.5 K/uL (1.8-8.0); Basophils % 0.2 % (0-1.3); Eosinophils % 0.8 % (0-4.4); Hematocrit 31.1 % (36.0-45.0); Hemoglobin 10.4 g/dL (12.0-15.0); Lymphocytes % 13.3 % (15.3-44.8); MCH 30.5 pg (27.0-35.0); MCHC 33.6 g/dL (32.0-36.0); MCV 90.7 fL (80-100); Neutrophils % 78.7 % (41.7-73.7); Platelets 139 thou/uL (152-406); RBC Red Blood Cell Count 3.42 M/uL (3.86-4.86); Red Cell Distribution Width 13.5 % (12.1-15.2)
[2024-06-26 06:00] LABS: Anion Gap 9.2 mEq/L (5.0-15.0); Magnesium 2.4 mg/dL (1.6-2.4); Phosphorus 2.8 mg/dL (2.5-4.9); Potassium 4.2 mEq/L (3.5-5.1)
--- NOTE | 2024-06-26 12:50 | P.PN ---
Date of Service: 06/26/24 Subjective Awake and eating breakfast Reports and some nausea EKG today QT/QTc interval ROS 10 point ROS as noted above, otherwise negative Physical Exam General: Alert and oriented x3, NAD, conversing well HEENT: Atraumatic, Normocephalic, PERRLA Neck: Supple, 2+ carotid pulse no bruit Respiratory: Clear to auscultation bilaterally, Normal air movement, on RA Cardiovascular: regualar rate and rhythm, S1 S2 present, no murmur noted Capillary refill: <2 Seconds Gastrointestinal: Normal bowel sounds, Soft and benign on palpation, ND/NT Musculoskeletal: No swelling, Other (Left hip tenderness), left hip incision dressing CDI Integumentary: No breakdown Neurological: Normal speech, Normal tone Vitals Reviewed Problem list Left intertrochanteric femur fracture Trauma/Fall Leukocytosis like d/t inflammation Prolonged QT Diabetes Mellitus- NIDDM History of HTN/HLD 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 Moderate burden of calcified and noncalcified atherosclerotic plaque with luminal irregularity along the distal descending thoracic aorta and throughout the abdominal aorta. Mild tortuosity of the infrarenal abdominal aorta without significant aneurysmal dilation. Reconstruction images show no other significant findings." -no significant aneurysmal dilation History of breast cancer s/p radiation -follow up outpatient DVT PPx Lovenox Full code LOS 2 days Discharge Plan: Home Plan to discharge in: Likely Inpatient rehab
[2024-06-27 06:34] LABS: Absolute Eosinophils 0.1 K/uL (0-0.5); Absolute Lymphocytes (CBC) 1.4 K/uL (0.7-4.9); Absolute Monocytes 0.7 K/uL (0.1-1.3); Absolute Neutrophil 7.1 K/uL (1.8-8.0); Basophils % 0.3 % (0-1.3); Eosinophils % 1.1 % (0-4.4); Hemoglobin 9.9 g/dL (12.0-15.0); Lymphocytes % 14.6 % (15.3-44.8); MCH 30.9 pg (27.0-35.0); MCHC 34.3 g/dL (32.0-36.0); MCV 90.2 fL (80-100); MPV 10.2 fL (7.6-11.3); Monocytes % 7.3 % (3.3-12.3); Neutrophils % 76.7 % (41.7-73.7); Nucleated Red Blood Cells % 0.1 % (0-0); Platelets 127 thou/uL (152-406); RBC Red Blood Cell Count 3.21 M/uL (3.86-4.86)
[2024-06-27 06:51] LABS: Anion Gap 9.7 mEq/L (5.0-15.0); Magnesium 2.1 mg/dL (1.6-2.4); Phosphorus 2.4 mg/dL (2.5-4.9); Potassium 3.7 mEq/L (3.5-5.1)
[2024-06-27] MEDS: POTASSIUM CL SA 10 MEQ TAB PO ONE (08:33)
[2024-06-27] MEDS: POTASS/SODIUM PHOSPHATE 1 PKT POWD.PACK PO SCH (08:34)
--- NOTE | 2024-06-27 13:34 | P.PN ---
Date of Service: 06/27/24 Subjective: Family at bedside, no acute events overnight Was able to ambulate to the bathroom with assistance last night Doing better with PT today ambulated 37 feet with walker ROS: 10 point ROS as noted above, otherwise negative Physical exam GEN: Alert, oriented, NAD HEENT: Normal conjunctiva, sclera anicteric CV: Regular rate and rhythm, no edema Pulm: Nonlabored respirations on room air ABD: Soft, nontender, nondistended MSK: No joint tenderness Integumentary: No rashes Neuro: Normal speech, normal affect Vitals reviewed Problem List Left intertrochanteric femur fracture Trauma/Fall Leukocytosis like d/t inflammation Prolonged QT Diabetes Mellitus- NIDDM History of HTN/HLD 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 Moderate burden of calcified and noncalcified atherosclerotic plaque with luminal irregularity along the distal descending thoracic aorta and throughout the abdominal aorta. Mild tortuosity of the infrarenal abdominal aorta without significant aneurysmal dilation. Reconstruction images show no other significant findings." -no significant aneurysmal dilation History of breast cancer s/p radiation -follow up outpatient DVT PPx Lovenox Full code LOS 2 days Discharge Plan: Home Plan to discharge in: Likely Inpatient rehab Time Spent Managing Pts Care (In Minutes): 30
[2024-06-28 05:05] LABS: Absolute Eosinophils 0.2 K/uL (0-0.5); Absolute Lymphocytes (CBC) 1.6 K/uL (0.7-4.9); Absolute Monocytes 0.7 K/uL (0.1-1.3); Basophils % 0.6 % (0-1.3); Eosinophils % 1.9 % (0-4.4); Hematocrit 29.6 % (36.0-45.0); Hemoglobin 10.2 g/dL (12.0-15.0); Lymphocytes % 18.9 % (15.3-44.8); MCH 31.2 pg (27.0-35.0); MCHC 34.5 g/dL (32.0-36.0); MCV 90.5 fL (80-100); Monocytes % 7.7 % (3.3-12.3); Neutrophils % 70.9 % (41.7-73.7); Nucleated Red Blood Cells % 0.1 % (0-0); Platelets 155 thou/uL (152-406); RBC Red Blood Cell Count 3.27 M/uL (3.86-4.86); Red Cell Distribution Width 13.3 % (12.1-15.2)
[2024-06-28 05:10] LABS: Anion Gap 8.3 mEq/L (5.0-15.0); Magnesium 2.2 mg/dL (1.6-2.4); Phosphorus 2.9 mg/dL (2.5-4.9); Potassium 4.3 mEq/L (3.5-5.1)
--- NOTE | 2024-06-28 13:06 | P.PN ---
Date of Service: 06/28/24 Subjective: Doing well Working with PT anxious to try to get in to inpatient rehab ROS: 10 point ROS as noted above, otherwise negative Physical exam GEN: Alert, oriented, NAD HEENT: Normal conjunctiva, sclera anicteric CV: Regular rate and rhythm, no edema Pulm: Nonlabored respirations on room air ABD: Soft, nontender, nondistended MSK: No joint tenderness Integumentary: No rashes Neuro: Normal speech, normal affect Vitals reviewed Problem List Left intertrochanteric femur fracture Trauma/Fall Leukocytosis like d/t inflammation Prolonged QT Diabetes Mellitus- NIDDM History of HTN/HLD 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 Moderate burden of calcified and noncalcified atherosclerotic plaque with luminal irregularity along the distal descending thoracic aorta and throughout the abdominal aorta. Mild tortuosity of the infrarenal abdominal aorta without significant aneurysmal dilation. Reconstruction images show no other significant findings." -no significant aneurysmal dilation History of breast cancer s/p radiation -follow up outpatient DVT PPx Lovenox Full code LOS 2 days Discharge Plan: Home Plan to discharge in: Likely Inpatient rehab Time Spent Managing Pts Care (In Minutes): 30
--- NOTE | 2024-06-29 09:04 | P.PN ---
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 Right adrenal nodule History of breast cancer s/p radiation Plan Left intertrochanteric femur fracture Trauma/Fall -Pelvis xray reports " comminuted displaced left intertrochanteric femur fracture" -Left hip with pelvis x-ray reports "comminuted left intertrochanteric femur fracture" -CT dissection reports "Comminuted left femoral intertrochanteric fracture with surrounding swelling within the gluteus muscles." -Physical therapy- recommend inpatient rehab-awaiting auth -initially declined for inpatient rehab, appeal initiated -Working well with PT Hyponatremia-Improved Monitor chemistry daily, stop IV fluids Prolonged QT -Avoid Zofran, Phenergan and other medications that prolong QT -continuous telemetry Diabetes Mellitus- NIDDM ACHS Accu-Chek, sliding scale History of HTN/HLD -continue home medications 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 Moderate burden of calcified and noncalcified atherosclerotic plaque with luminal irregularity along the distal descending thoracic aorta and throughout the abdominal aorta. Mild tortuosity of the infrarenal abdominal aorta without significant aneurysmal dilation. Reconstruction images show no other significant findings." -no significant aneurysmal dilation History of breast cancer s/p radiation -follow up outpatient DVT PPx Lovenox Full code LOS 2 days Discharge Plan: Home Plan to discharge in: Likely Inpatient rehab Time Spent Managing Pts Care (In Minutes): 30
--- NOTE | 2024-06-29 11:52 | EKG ---
Test Date: 2024-06-26 Test Time: 13:25:54 Safety And Occupational Health Manager: ROSE MARY MEASUREMENT RESULTS: Intervals: Rate: 90 IA: 146 QRSD: 88 QT: 372 QTc: 455 [place]: P: 45 IA: 146 QRS: -30 T: 118 INTERPRETIVE STATEMENTS: Normal sinus rhythm Left axis deviation Left ventricular hypertrophy with repolarization abnormality Abnormal ECG Compared to ECG 06/23/2024 05:37:19 Left-axis deviation now present Early repolarization now present T-wave abnormality no longer present Possible ischemia no longer present Prolonged QT interval no longer present Electronically Signed On 06-29-24 11:50:36 CDT by Kevin Last
--- NOTE | 2024-06-30 14:34 | P.PN ---
Date of Service: 06/30/24 Subjective: Doing well Working with PT Improving daily Had some worsening pain overnight ROS: 10 point ROS as noted above, otherwise negative Physical exam GEN: Alert, oriented, NAD HEENT: Normal conjunctiva, sclera anicteric CV: Regular rate and rhythm, no edema Pulm: Nonlabored respirations on room air ABD: Soft, nontender, nondistended MSK: No joint tenderness, pain to left hip, dressing CDI Integumentary: No rashes Neuro: Normal speech, normal affect Vitals reviewed Problem List Left intertrochanteric femur fracture Trauma/Fall Leukocytosis like d/t inflammation Prolonged QT Diabetes Mellitus- NIDDM History of HTN/HLD 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 Right adrenal nodule History of breast cancer s/p radiation Plan Left intertrochanteric femur fracture Trauma/Fall -Pelvis xray reports " comminuted displaced left intertrochanteric femur fracture" -Left hip with pelvis x-ray reports "comminuted left intertrochanteric femur fracture" -CT dissection reports "Comminuted left femoral intertrochanteric fracture with surrounding swelling within the gluteus muscles." -Physical therapy- recommend inpatient rehab-awaiting auth -initially declined for inpatient rehab, appeal denied -Arranging for SNF now -Working well with PT Hyponatremia-Improved Monitor chemistry daily, stop IV fluids Prolonged QT -Avoid Zofran, Phenergan and other medications that prolong QT -continuous telemetry Diabetes Mellitus- NIDDM ACHS Accu-Chek, sliding scale History of HTN/HLD -continue home medications 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 Moderate burden of calcified and noncalcified atherosclerotic plaque with luminal irregularity along the distal descending thoracic aorta and throughout the abdominal aorta. Mild tortuosity of the infrarenal abdominal aorta without significant aneurysmal dilation. Reconstruction images show no other significant findings." -no significant aneurysmal dilation History of breast cancer s/p radiation -follow up outpatient DVT PPx Lovenox Full code LOS 2 days Discharge Plan: Home Plan to discharge in: Likely SNF Time Spent Managing Pts Care (In Minutes): 30
[2024-06-30] MEDS ORDERED: HYDROMORPHONE HCL 1 MG/ML INJ IV PRN (14:35)
[2024-06-30] MEDS ORDERED: ONDANSETRON 4 MG/2 ML VIAL IV PRN (14:36)
[2024-06-30] MEDS: HYDROCODONE/APAP 5/325 MG TAB PO PRN (17:44)
[2024-07-01] MEDS: NA CHLORIDE 0.9% 500 ML IV ONE (13:24)
[2024-07-01] MEDS: NA CHLORIDE 0.9% 1,000 ML IV SCH (13:25)
[2024-07-01] MEDS: POLYETHYL GLY 3350 17 GM/DOSE PO ONE (14:23)
--- NOTE | 2024-07-01 16:07 | P.PN ---
Date of Service: 07/01/24 Subjective: Doing well Working with PT Improving daily Dealing with constipation today ROS: 10 point ROS as noted above, otherwise negative Physical exam GEN: Alert, oriented, NAD HEENT: Normal conjunctiva, sclera anicteric CV: Regular rate and rhythm, no edema Pulm: Nonlabored respirations on room air ABD: Soft, nontender, nondistended MSK: No joint tenderness, pain to left hip, dressing CDI Integumentary: No rashes Neuro: Normal speech, normal affect Vitals reviewed Problem List Left intertrochanteric femur fracture Trauma/Fall Constipation Diabetes Mellitus- NIDDM History of HTN/HLD 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 Right adrenal nodule History of breast cancer s/p radiation Plan Left intertrochanteric femur fracture Trauma/Fall -Pelvis xray reports " comminuted displaced left intertrochanteric femur fracture" -Left hip with pelvis x-ray reports "comminuted left intertrochanteric femur fracture" -CT dissection reports "Comminuted left femoral intertrochanteric fracture with surrounding swelling within the gluteus muscles." -Physical therapy- recommend inpatient rehab-awaiting auth -initially declined for inpatient rehab, appeal denied -Family agreed on HH with PT/OT, likely DC in am -Working well with PT Constipation Miralax today Fleets enema if not effective Hyponatremia-Improved Monitor chemistry daily, stop IV fluids Prolonged QT-improved -Avoid Zofran, Phenergan and other medications that prolong QT -continuous telemetry Diabetes Mellitus- NIDDM ACHS Accu-Chek, sliding scale History of HTN/HLD -continue home medications 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 Moderate burden of calcified and noncalcified atherosclerotic plaque with luminal irregularity along the distal descending thoracic aorta and throughout the abdominal aorta. Mild tortuosity of the infrarenal abdominal aorta without significant aneurysmal dilation. Reconstruction images show no other significant findings." -no significant aneurysmal dilation History of breast cancer s/p radiation -follow up outpatient DVT PPx Lovenox Full code LOS 2 days Discharge Plan: Home Plan to discharge in: Likely SNF Time Spent Managing Pts Care (In Minutes): 30
[2024-07-01] MEDS: glipiZIDE 5 MG TAB PO SCH (16:48)
[2024-07-01] MEDS: FLEET ENEMA ADULT PR ONE (19:12)
[2024-07-01] MEDS ORDERED: GLIPIZIDE 2.5 MG PO SCH (21:00)
[2024-07-02 06:02] LABS: Anion Gap 9.1 mEq/L (5.0-15.0); Potassium 4.1 mEq/L (3.5-5.1)
[2024-07-02 08:55] VITALS: BP 144/65; TEMP 98.2
[2024-07-02 09:36] VITALS: O2SAT 98
--- NOTE | 2024-07-02 11:32 | P.DS ---
Admission Date: 06/23/24 Discharge Date: 07/02/24 Disposition: DC HOME/HOME HEALTH CARE Discharge Condition: GOOD Reason for Admission: Left intertrochanteric femur fracture Consultations: Dr. Jenkins Procedures: Intramedullary rodding of left hip fracture 06/24 Brief History of Present Illness: Kim Kumari is a 73 year old female with Pmhx of diabetes mellitusNIDDM, hypertension, hyperlipidemia, chronic pain with lower back problems and arthritis, frequent falls, pheochromocytoma, breast cancer who presents to the ED with chief complaint of left hip pain. She reports tripping over her dog at 3am landing on her left hip. Of note, she states she had fallen on her left side and hit her head at her last ED visit. She does not remember falling but woke up on the floor. Pelvis xray reports " comminuted displaced left intertrochanteric femur fracture" Chest x-ray reports "no acute cardiopulmonary process identified" Left hip with pelvis x-ray reports "comminuted left intertrochanteric femur fracture" Kim will be admitted to hospitalist service for further treatment of left intertrochanteric femur fracture. 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 She underwent intramedullary rodding of her left intertrochanteric femur fracture on 06/24. She has done well in the postoperative period, we initially were trying for inpatient rehab but this was declined after appeal wi th her insurance company. After this patient was progressing very well with physical therapy and is currently stable for discharge with home health/PT/OT at home. During her hospitalization she did deal with some constipation which was resolved with MiraLAX, recommend taking MiraLAX daily while needing her pain medication as this can cause some constipation. Additionally she has been sent a prescription for Eliquis 2.5 mg by mouth twice daily which is a blood thinner to reduce the risk of blood clots after surgery, she will need to take this through 07/30. While she is on the Eliquis we rec ommend holding the aspirin that she takes daily, once she has completed the course of Eliquis she may resume taking her aspirin. Prescription for [place] also sent to the pharmacy for pain management of the left hip. May resume your other home medications as previously taken aside from aspirin as discussed above. Reports and imaging disc given to family/patient, discussed additional finding of right adrenal nodule. Please follow-up with Dr. Jenkins about 2 weeks after surgery to have to removed. Vital Signs/Physical Exam: Temp Pulse Resp BP Pulse Ox 98.2 F 86 14 144/65 H 96 07/02/24 08:00 07/02/24 08:00 07/02/24 08:00 07/02/24 08:00 07/02/24 08:00 General: Alert, In no apparent distress, Oriented x3 HEENT: Atraumatic, PERRLA Neck: Supple, JVD not distended Respiratory: Clear to auscultation bilaterally, Normal air movement Cardiovascular: Regular rate/rhythm, Normal S1 S2 Gastrointestinal: Normal bowel sounds, No tenderness Musculoskeletal: No tenderness Integumentary: No rashes Neurological: Normal speech, Normal tone, Normal affect Laboratory Data at Discharge: WBC 8.50 thou/uL (4.3-10.9) 06/28/24 04:27 Hgb 10.2 g/dL (12.0-15.0) L 06/28/24 04:27 Hct 29.6 % (36.0-45.0) L 06/28/24 04:27 Plt Count 155 thou/uL (152-406) 06/28/24 04:27 PT 10.9 SECONDS (9.4-12.5) 06/23/24 06:30 INR 0.97 06/23/24 06:30 Sodium 138 mEq/L (136-145) D 07/02/24 04:42 Potassium 4.1 mEq/L (3.5-5.1) D 07/02/24 04:42 BUN 8 mg/dL (7-18) 07/02/24 04:42 Creatinine 0.64 mg/dL (0.55-1.02) 07/02/24 04:42 Glucose 195 mg/dL (74-106) H 07/02/24 04:42 Phosphorus 2.9 mg/dL (2.5-4.9) 06/28/24 04:27 Magnesium 2.2 mg/dL (1.6-2.4) 06/28/24 04:27 Total Bilirubin 0.7 mg/dL (0.2-1.0) 06/23/24 06:30 AST 71 U/L (15-37) H 06/23/24 06:30 ALT 39 U/L (13-56) 06/23/24 06:30 Alkaline Phosphatase 83 U/L (45-117) 06/23/24 06:30 Home Medications: Amlodipine Besylate 10 mg PO DAILY 06/23/24 Azelastine HCl [Astepro] 137 mcg NS BID 06/23/24 Ezetimibe 10 mg PO DAILY 06/23/24 Fluticasone [Flonase 50MCG Nasal [place]*] 1 spray DAILY 06/23/24 Hydralazine HCl 100 mg PO BID 06/23/24 Mv/Fe/FA/Om3/FSH/Lycop/Lut/Bautista [Multia Daily Multivitamin] 1 cap PO DAILY 06/23/24 Pravastatin Sodium 10 mg PO BEDTIME 06/23/24 Ubidecarenone [Co Q-10] 10 mg PO DAILY 06/23/24 glipiZIDE [Glipizide] 2.5 mg PO BID 06/23/24 Apixaban [Eliquis] 2.5 mg PO BID 28 Days #56 tablet 07/02/24 Hydrocodone 7.5/APAP 325 [[place] 7.5/325 mg] 1 tab PO Q6H PRN #20 tab 07/02/24 New Medications: Apixaban [Eliquis] 2.5 mg PO BID 28 Days #56 tablet Hydrocodone 7.5/APAP 325 [[place] 7.5/325 mg] 1 tab PO Q6H PRN #20 tab PRN Reason: Pain Physician Discharge Instructions: Patient was admitted to the hospital for a left intertrochanteric femur fracture. She underwent intramedullary rodding of her left intertrochanteric femur fracture on 06/24. She has done well in the postoperative period, [facility] were trying for inpatient rehab but this was declined after appeal with her insurance company. After this patient was progressing very well with physical therapy and is currently stable for discharge with home health/PT/OT at home. During her hospitalization she did deal with some constipation which was resolved with MiraLAX, recommend taking MiraLAX daily while needing her pain medication as this can cause some constipation. Additionally she has been sent a prescription for Eliquis 2.5 mg by mouth twice daily which is a blood thinner to reduce the risk of blood clots after surgery, she will need to take this through 07/30. While she is on the Eliquis we recommend holding the aspirin that she takes daily, once she has completed the course of Eliquis she may resume taking her aspirin. Prescription for [place] also sent to the pharmacy for pain management of the left hip. May resume your other home medications as previously taken aside from aspirin as discussed above. Reports and imaging disc given to family/patient, discussed additional finding of right adrenal nodule. Please follow-up with Dr. Jenkins about 2 weeks after surgery to have to removed. Diet: Regular Activity: Touch-down Followup: Dee Jimenez NP [Primary Care Provider] - 1 Week Mani Jenkins MD [ACTIVE - CAN ADMIT] - Time spent managing pt's care (in minutes): 35
== END 2024-07-02 10:48 | disposition home health service (06) | DRG 481 ==
LOC: ER 04:29 → ERHOLD 10:48 → 2ND 11:52
PROVIDERS: ADMIT Internal Medicine; ATTEND Hospitalist
PROC: 0QS706Z Reposition Left Upper Femur with Intramedullary Internal Fixation Device, Open Approach (ICD-10-PCS; principal; 2024-06-24 12:00)
PROC: 0T9B70Z Drainage of Bladder with Drainage Device, Via Natural or Artificial Opening (ICD-10-PCS; 2024-06-25)
DX: S72.142A Displaced intertrochanteric fracture of left femur, initial encounter for closed fracture (principal); E87.1 Hypo-osmolality and hyponatremia; D69.6 Thrombocytopenia, unspecified; E11.9 Type 2 diabetes mellitus without complications; I10 Essential (primary) hypertension; E78.5 Hyperlipidemia, unspecified; M47.9 Spondylosis, unspecified; D72.829 Elevated white blood cell count, unspecified; K59.00 Constipation, unspecified; G89.29 Other chronic pain; M54.9 Dorsalgia, unspecified; R94.31 Abnormal electrocardiogram [ECG] [EKG]; R29.6 Repeated falls; Z88.0 Allergy status to penicillin; Z92.3 Personal history of irradiation; Z85.3 Personal history of malignant neoplasm of breast; Z91.81 History of falling; Z79.82 Long term (current) use of aspirin; Z79.01 Long term (current) use of anticoagulants; Z79.84 Long term (current) use of oral hypoglycemic drugs; Z79.899 Other long term (current) drug therapy; W01.0XXA Fall on same level from slipping, tripping and stumbling without subsequent striking against object, initial encounter; Y92.019 Unspecified place in single-family (private) house as the place of occurrence of the external cause; Y93.9 Activity, unspecified; Y99.9 Unspecified external cause status
CPT/HCPCS: 36415; 51702; 70450; 71045; 71275; 72170; 74175; 80048; 80076; 81001; 82947; 83735; 84100; 85025; 85610; 86850; 86900; 86901; 93005; 97110; 97116; 97161; 97530; 99285; J0171; J0360; J0690; J1100; J1170; J1650; J2001; J2270; J2405; J2704; J3360; J7030; J7040; Q9967